=== PATIENT | male | born 1995 | race Caucasian/White ===

== ENCOUNTER 2019-05-11 08:04 | Outpatient (RCR) | payer MEDICAID ==
[~2019-05-11 08:04] MED LIST: ACET-77 PO; CARB200T6 PO; DILT180C84 PO; FURO40TA4 PO; GABA-488 PO; ISON300T18 PO; LISI10TA2 PO; MAGN400T6 PO; METO-395 PO; Non-Formulary Medication PO; PANT40TA3 PO; PYRI50TA13 PO; SPIR25TA5 PO; WARF5TAB PO
== END 2019-07-05 | disposition home or self-care (01) ==
LOC: CR 08:04
PROVIDERS: ATTEND Internal Medicine Cardiovascular Disease
DX: I50.9 Heart failure, unspecified (principal)
CPT/HCPCS: 93798

== ENCOUNTER 2019-10-20 13:25 | Emergency (ER) | payer MEDICAID ==
[~2019-10-20] VITALS: Ht 187 cm; Wt 175.0 kg
[2019-10-20] MEDS ORDERED: NS IV 1000 ML 1,000 ML IV SCH ×2 (14:03→15:35)
[2019-10-20 14:11] LABS: BASOPHILS % (AUTO) 0 % (0-10); EOSINOPHILS # (AUTO) 0.1 10^3/uL (0.0-0.3); EOSINOPHILS % (AUTO) 1 % (0-10); HEMATOCRIT 45 % (40-54); HEMOGLOBIN 14.6 G/DL (13.3-17.7); LYMPHOCYTES # (AUTO) 1.2 X 10^3 (1.0-4.0); LYMPHOCYTES % (AUTO) 14 % (12-44); MEAN CORPUSCULAR HEMOGLOBIN 27 PG (25-34); MEAN CORPUSCULAR HGB CONC 33 G/DL (32-36); MEAN CORPUSCULAR VOLUME 83 FL (80-99); MEAN PLATELET VOLUME 12.6 FL (7.4-10.4); MONOCYTES # (AUTO) 1.3 X 10^3 (0.0-1.0); MONOCYTES % (AUTO) 16 % (0-12); NEUTROPHILS # (AUTO) 5.7 X 10^3 (1.8-7.8); NEUTROPHILS % (AUTO) 69 % (42-75); PLATELET COUNT 193 10^3/uL (130-400); RED CELL DISTRIBUTION WIDTH 17.3 % (10.0-14.5); WHITE BLOOD COUNT 8.3 10^3/uL (4.3-11.0)
--- NOTE | 2019-10-20 14:24 | Diagnostic Imaging Report ---
INDICATION: Hypotension. Cough. COMPARISON: None FINDINGS: Frontal and lateral views of the chest demonstrate marked enlargement of the cardiac silhouette. There is also mild prominence of pulmonary vasculature. Left-sided AICD is noted. The lungs are clear. There are no signs of infiltrate, pleural effusions or pneumothoraces. The visualized osseous structures show no acute abnormalities. IMPRESSION: 1. Marked enlargement of the cardiac silhouette suspicious for cardiomegaly, although underlying pericardial effusion cannot be excluded. 2. Probable mild vascular congestion as well. Dictated by: Dictated on workstation # [id number]
[2019-10-20 15:22] LABS: ALBUMIN 4.3 GM/DL (3.2-4.5); BILIRUBIN,TOTAL 1.5 MG/DL (0.1-1.0); CALCIUM 9.3 MG/DL (8.5-10.1); CREATININE SERUM 2.66 MG/DL (0.60-1.30); MAGNESIUM 2.2 MG/DL (1.6-2.4); POTASSIUM 5.2 MMOL/L (3.6-5.0); TOTAL PROTEIN 6.6 GM/DL (6.4-8.2)
--- NOTE | 2019-10-20 16:29 | ED General ---
General Chief Complaint: Cardiac/General Problems Stated Complaint: BLOOD PRESSURE LOW/COUGH Nursing Triage Note: AMB TO TRIAGE WITH COMPLAINTS OF HYPOTENSION STARTING LAST WEEK. WAS SEEN BY DR LANDIS YESTERDAY AND WAS TOLD IF IT DID NOT GET BETTER TO GO TO THE ER. TAKES X2 DIURETICS AND HAS STOPPED ONE BUT DOES NOT KNOW THE NAME. Nursing Sepsis Screen: No Definite Risk Source of Information: Patient History of Present Illness Date Seen by Provider: Oct 20, 2019 Time Seen by Provider: 14:20 Initial Comments 23-year-old male brought in due to concern for hypotension. Patient has a history of severe dilated cardiomyopathy with last known EF of 20%. Patient presents with cough, fever and then started having low blood pressure. Blood pressure going on for a few days was seen by his primary care yesterday and was told to stop taking one of his to diuretics. That if it did not get better to come to the ER. Patient's blood pressure upon arrival to the ER with systolics of the low 70s. He did not complain of any chest pain. Does have some generalized malaise. No nausea vomiting diarrhea or other systemic Allergies and Home Medications Allergies Coded Allergies: Penicillins (Unverified Allergy, Unknown, 11/22/15) azithromycin (Verified Allergy, Unknown, 11/24/15) cefepime (Verified Allergy, Unknown, 11/24/15) Home Medications Acetaminophen 500 Mg Tablet, 1,000 MG PO Q6H PRN for MILD PAIN Prescribed by: HEATH SAPP on 12/05/15 141 Carbamazepine 200 Mg Tablet, 200 MG PO TID Prescribed by: HEATH SAPP on 12/05/15 141 Diltiazem HCl 180 Mg Cap.er.24h, 180 MG PO DAILY Prescribed by: HEATH SAPP on 12/05/15 141 Furosemide 40 Mg Tablet, 40 MG PO DAILY@07,17 Prescribed by: HEATH SAPP on 12/05/15 141 Gabapentin 300 Mg Capsule, 300 MG PO TID Prescribed by: HEATH SAPP on 12/05/15 141 Isoniazid 300 Mg Tablet, 0 MG PO DAILY Prescribed by: HEATH SAPP on 12/05/15 141 Lisinopril 10 Mg Tablet, 10 MG PO DAILY Prescribed by: HEATH SAPP on 12/05/15 141 Magnesium Oxide 400 Mg Tablet, 400 MG PO DAILY@0700 Prescribed by: HEATH SAPP on 12/05/15 1418 Metoprolol Succinate 100 Mg Tab.er.24h, 200 MG PO DAILY Prescribed by: HEATH SAPP on 12/05/15 141 Pantoprazole Sodium 40 Mg Tablet.dr, 40 MG PO DAILY@0700 Prescribed by: HEATH SAPP on 12/05/15 141 Pyridoxine HCl 50 Mg Tablet, 0 MG PO DAILY Prescribed by: HEATH SAPP on 12/05/15 141 Spironolactone 25 Mg Tablet, 12.5 MG PO DAILY Prescribed by: HEATH SAPP on 12/05/15 141 Warfarin Sodium 5 Mg Tablet, 5 MG PO DAILY@1800 Prescribed by: HEATH SAPP on 12/05/151417 Patient Home Medication List Home Medication List Reviewed: Yes Review of Systems Review of Systems Constitutional: No chills; fever, malaise Respiratory: cough Cardiovascular: see HPI Gastrointestinal: no symptoms reported Musculoskeletal: no symptoms reported Skin: no symptoms reported Past Mrofpny-Ovdgdd-Wlyjlp Hx Past Med/Social Hx: Reviewed Nursing Past Med/Soc Hx Patient Social History Alcohol Use: Denies Use Recreational Drug Use: No Smoking Status: Never a Smoker Recent Foreign Travel: No Contact w/Someone Who Travel: No Recent Infectious Disease Expo: No Physical Abuse: No Sexual Abuse: No Mistreated: No Fear: No Immunizations Up To Date Tetanus Booster (TDap): Unknown PED Vaccines UTD: No Date of Pneumonia Vaccine: Nov 22, 2015 Past Medical History Surgeries: Yes Orthopedic Respiratory: Yes Pneumonia, RSV, Tuberculosis Currently Using CPAP: No Currently Using BIPAP: No Cardiomyopathy Neurological: Yes Reproductive Disorders: No Sexually Transmitted Disease: No HIV/AIDS: No Gastrointestinal: Yes Hepatitis Musculoskeletal: No Endocrine: No Loss of Vision: Denies Hearing Impairment: Denies Cancer: No Psychosocial: No Sleep Difficulties Integumentary: No Blood Disorders: No Adverse Reaction/Blood Tranf: No Family Medical History Alcoholism 19 MOTHER Asthma G8 SISTER (8 ) Congenital heart disease G8 SISTER Drug abuse 19 FATHER 19 MOTHER Hypertension 19 FATHER Physical Exam Vital Signs Vital Signs - First Documented 10/20/19 13:47 Temp 36.4 Pulse 75 Resp 16 B/P (MAP) 86/39 (55) Pulse Ox 97 O2 Delivery Room Air Capillary Refill : Less Than 3 Seconds Height, Weight, BMI Height: '" Weight: lbs. oz. kg; 50.00 BMI Method: General Appearance: No Apparent Distress HEENT: TMs Normal Respiratory: Lungs Clear, Normal Breath Sounds Cardiovascular: Regular Rate, Rhythm Gastrointestinal: Non Tender, Soft Extremity: Slow Capillary Refill Neurologic/Psychiatric: Alert, Oriented x3, capacitor repairer II-XII Norm as Tested Focused Exam Lactate Level 10/20/19 14:23: Lactic Acid Level 1.55 Lactic Acid Level Laboratory Tests Test 10/20/19 14:23 Lactic Acid Level 1.55 MMOL/L (0.50-2.00) Progress/Results/Core Measures Suspected Sepsis Recent Fever Within 48 Hours: No Infection Criteria Present: None New/Unexplained Altered Menta: No Sepsis Screen: No Definite Risk SIRS Temperature: Pulse: 75 Respiratory Rate: 16 Laboratory Tests 10/20/19 14:04: White Blood Count 8.3 Blood Pressure 86 /39 Mean: 55 10/20/19 14:23: Lactic Acid Level 1.55 Laboratory Tests 10/20/19 14:04: Platelet Count 193 10/20/19 14:53: Creatinine 2.66H, Total Bilirubin 1.5H Results/Orders Lab Results Laboratory Tests Test 10/20/19 14:04 10/20/19 14:23 10/20/19 14:53 Range/Units White Blood Count 8.3 4.3-11.0 10^3/uL Red Blood Count 5.38 4.35-5.85 10^6/uL Hemoglobin 14.6 13.3-17.7 G/DL Hematocrit 45 40-54 % Mean Corpuscular Volume 83 80-99 FL Mean Corpuscular Hemoglobin 27 25-34 PG Mean Corpuscular Hemoglobin Concent 33 32-36 G/DL Red Cell Distribution Width 17.3 H 10.0-14.5 % Platelet Count 193 130-400 10^3/uL Mean Platelet Volume 12.6 H 7.4-10.4 FL Neutrophils (%) (Auto) 69 42-75 % Lymphocytes (%) (Auto) 14 12-44 % Monocytes (%) (Auto) 16 H 0-12 % Eosinophils (%) (Auto) 1 0-10 % Basophils (%) (Auto) 0 0-10 % Neutrophils # (Auto) 5.7 1.8-7.8 X 10^3 Lymphocytes # (Auto) 1.2 1.0-4.0 X 10^3 Monocytes # (Auto) 1.3 H 0.0-1.0 X 10^3 Eosinophils # (Auto) 0.1 0.0-0.3 10^3/uL Basophils # (Auto) 0.0 0.0-0.1 10^3/uL B-Type Natriuretic Peptide 1527.6 H <100.0 PG/ML Lactic Acid Level 1.55 0.50-2.00 MMOL/L Sodium Level 132 L 135-145 MMOL/L Potassium Level 5.2 H 3.6-5.0 MMOL/L Chloride Level 96 L 98-107 MMOL/L Carbon Dioxide Level 23 21-32 MMOL/L Anion Gap 13 5-14 MMOL/L Blood Urea Nitrogen 54 H 7-18 MG/DL Creatinine 2.66 H 0.60-1.30 MG/DL Estimat Glomerular Filtration Rate 30 BUN/Creatinine Ratio 20 Glucose Level 96 70-105 MG/DL Calcium Level 9.3 8.5-10.1 MG/DL Corrected Calcium 9.1 8.5-10.1 MG/DL Magnesium Level 2.2 1.6-2.4 MG/DL Total Bilirubin 1.5 H 0.1-1.0 MG/DL Aspartate Amino Transf (AST/SGOT) 24 5-34 U/L Alanine Aminotransferase (ALT/SGPT) 19 0-55 U/L Alkaline Phosphatase 103 40-136 U/L Troponin I 0.037 H <0.028 NG/ML Total Protein 6.6 6.4-8.2 GM/DL Albumin 4.3 3.2-4.5 GM/DL Micro Results Microbiology 10/20/19 Influenza Types A,B Antigen (SUZANNE) - Final, Complete My Orders Orders - AKILA DELGADO DO Ekg Tracing (10/20/19 14:02) BNP (10/20/19 14:02) Cbc With Automated Diff (10/20/19 14:02) Comprehensive Metabolic Panel (10/20/19 14:02) Lactic Acid Analyzer (10/20/19 14:02) Magnesium (10/20/19 14:02) Troponin I (10/20/19 14:02) Influenza A And B Antigens (10/20/19 14:02) Chest Pa/Lat (2 View) (10/20/19 14:02) Ed Iv/Invasive Line Start (12/12/19 14:03) Ns Iv 1000 Ml (Sodium Chloride 0.9%) (10/20/19 14:03) Ed Iv/Invasive Line Start (10/20/19 15:35) Ns Iv 1000 Ml (Sodium Chloride 0.9%) (10/20/19 15:35) Vital Signs/I&O 10/20/19 13:47 Temp 36.4 Pulse 75 Resp 16 B/P (MAP) 86/39 (55) Pulse Ox 97 O2 Delivery Room Air Capillary Refill : Less Than 3 Seconds Blood Pressure Mean: 55 POS Progress Note : Time: 16:47 Progress Note Patient to be transferred to [facility]. We were able to get his systolic blood pressure up to in the 100s. We will hold fluids and only gets small doses as needed to keep his blood pressure systolic 90-100. Patient has severe CHF with biventricular failure due to patient's severe cardiomyopathy both [facility] and [facility] are unable to care for patient. He will be transferred to [facility] since they have the capability to care for him and have seen him in the past. Patient went in stable condition and will be transferred via EMS Departure Impression Primary Impression: Hypotension Qualified Codes: I95.9 - Hypotension, unspecified Additional Impression: Cardiomyopathy Qualified Codes: I42.0 - Dilated cardiomyopathy Disposition: 02 XFER SHT-TRM HOSP Condition: Stable Transfer Transfer Reason: Exceeds level of care Time Spoke to Accepting Phy: 16:45 Transfer Time: 17:45 Transfer Facility: [facility] Method of Transfer: EMS Departure-Patient Inst. Referrals: EMMANUEL LANDIS MD (PCP/Family) Primary Care Physician AKILA DELGADO DO Oct 20, 2019 16:29 POS
[2019-10-20 18:06] VITALS: BP 94/69
== END 2019-10-20 18:06 | disposition short-term general hospital (02) ==
LOC: EDUNIT# 13:25 → ER 13:26
DX: I95.9 Hypotension, unspecified (principal); I42.0 Dilated cardiomyopathy; Z88.0 Allergy status to penicillin; Z88.1 Allergy status to other antibiotic agents; Z79.01 Long term (current) use of anticoagulants; Z82.49 Family history of ischemic heart disease and other diseases of the circulatory system
CPT/HCPCS: 36415; 71046; 80053; 83605; 83735; 83880; 84484; 85025; 87804; 93005; 96360; 96361

== ENCOUNTER 2019-11-09 13:11 | Emergency (ER) | payer MEDICAID ==
[~2019-11-09] VITALS: Ht 187 cm; Wt 164.6 kg
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
[2019-11-09 13:46] LABS: HEMOGLOBIN 15.6 G/DL (13.3-17.7); MEAN CORPUSCULAR HEMOGLOBIN 27 PG (25-34); WHITE BLOOD COUNT 9.4 10^3/uL (4.3-11.0)
[2019-11-09 13:47] LABS: BASOPHILS % (AUTO) 1 % (0-10); EOSINOPHILS % (AUTO) 1 % (0-10); HEMATOCRIT 49 % (40-54); LYMPHOCYTES % (AUTO) 23 % (12-44); MEAN CORPUSCULAR HGB CONC 32 G/DL (32-36); MEAN CORPUSCULAR VOLUME 84 FL (80-99); MEAN PLATELET VOLUME 13.6 FL (7.4-10.4); MONOCYTES % (AUTO) 13 % (0-12); NEUTROPHILS % (AUTO) 63 % (42-75); PLATELET COUNT 164 10^3/uL (130-400)
[2019-11-09 13:48] LABS: BASOPHILS # (AUTO) 0.1 10^3/uL (0.0-0.1); EOSINOPHILS # (AUTO) 0.1 10^3/uL (0.0-0.3); LYMPHOCYTES # (AUTO) 2.1 X 10^3 (1.0-4.0); MONOCYTES # (AUTO) 1.2 X 10^3 (0.0-1.0)
--- NOTE | 2019-11-09 14:17 | NUR ---
Patient's grandma states that they missed 3 days of his seizure medicine starting on Oct 27.
[2019-11-09] MEDS ORDERED: LEVE500T99 PO (14:18)
--- NOTE | 2019-11-09 14:18 | NUR ---
Grandmother states the patient is scheduled for pacemaker surgery on November 15.
[2019-11-09] MEDS ORDERED: LEVETIRACETAM 500 MG/5 ML (KEPPRA) VIAL IV ONE (14:19)
--- NOTE | 2019-11-09 14:27 | Diagnostic Imaging Report ---
PROCEDURE: CT head without contrast. TECHNIQUE: Multiple contiguous axial images were obtained through the brain without the use of intravenous contrast. Auto Exposure Controls were utilized during the CT exam to meet ALARA standards for radiation dose reduction. DATE: November 09, 2019. COMPARISON: None. INDICATION: 24-year-old male, seizure-like activity. FINDINGS: The ventricles and cerebral spinal fluid spaces are of normal size and configuration for the patient's age. There is no mass effect or midline shift. There is no acute intracranial hemorrhage. There is no abnormal extra-axial fluid collection. The visualized portions of the paranasal sinuses, mastoid air cells and middle ears are well aerated. IMPRESSION: 1. No identified acute intracranial abnormality. Dictated by: Dictated on workstation # [id number]
[2019-11-09 14:30] LABS: POTASSIUM 5.1 MMOL/L (3.6-5.0)
[2019-11-09] MEDS ORDERED: LEVETIRACETAM INJECTION 1,000 MG in NS (IVPB) 100 ML IV SCH ×2 (14:30→21:00)
[2019-11-09 14:32] LABS: CREATININE SERUM 3.33 MG/DL (0.60-1.30)
[2019-11-09 14:33] LABS: ALBUMIN 4.2 GM/DL (3.2-4.5); BILIRUBIN,TOTAL 3.1 MG/DL (0.1-1.0); CALCIUM 9.8 MG/DL (8.5-10.1); TOTAL PROTEIN 6.5 GM/DL (6.4-8.2)
[2019-11-09] MEDS ORDERED: NS IV 500 ML 500 ML IV ONE (14:34)
--- NOTE | 2019-11-09 14:51 | NUR ---
Iv infiltrated at this time. Arm wrapped in warm blanket and notified Dr Polanco. Approximately 100 mls of 500 ml bolus has infused.
[2019-11-09 15:08] VITALS: BP 84/52
== END 2019-11-09 15:20 | disposition home or self-care (01) ==
LOC: EDUNIT# 13:11 → ER FS 13:12
DX: G40.909 Epilepsy, unspecified, not intractable, without status epilepticus (principal); Z88.0 Allergy status to penicillin; Z88.1 Allergy status to other antibiotic agents; Z79.01 Long term (current) use of anticoagulants; Z82.49 Family history of ischemic heart disease and other diseases of the circulatory system
CPT/HCPCS: 36415; 70450; 80053; 80156; 82962; 84443; 85025; 93005; 96365

== ENCOUNTER 2019-11-10 19:07 | Emergency (ER) | payer MEDICAID ==
[~2019-11-10] VITALS: Ht 187.9 cm; Wt 164.6 kg
[~2019-11-10 19:07] MED LIST changes: +LEVE500T99 PO
[2019-11-10] MEDS ORDERED: NS IV 1000 ML 1,000 ML IV SCH (19:21)
[2019-11-10] MEDS ORDERED: LIDOCAINE 1% INJ 20 ML 20 ML VIAL INJ ONE (19:30)
[2019-11-10] MEDS ORDERED: VANCOMYCIN INJECTION 1,000 MG in NS (IVPB) 250 ML IV ONE (19:30)
[2019-11-10] MEDS ORDERED: MEROPENEM 1,000 MG in WATER (STERILE) FOR INJECTION 20 ML IV ONE (19:30)
--- NOTE | 2019-11-10 19:30 | ED Neurological Problem ---
General Stated Complaint: HYPOTENSIVE Source: patient, family, EMS Exam Limitations: clinical condition (partially postictal) History of Present Illness Date Seen by Provider: Nov 10, 2019 Time Seen by Provider: 19:12 Initial Comments He was getting ready to transport [facility] by private conveyance with his family for chronic renal failure and he had a seizure. Last time he had was over 10 years ago when he was in high school. He still takes Tegretol and another new antiepileptic medicine but he doesn't know the name. He does not know the name of most of his medicines. He has a pacemaker in place. EMS noted he was cool to touch and had poor blood pressure. They were unable to access his veins because he is a difficult stick. They were warming him up on scene and en route. He bit his tongue and was predominantly concerned with this. Family gives a history per his aunt bit for the past week she's had a couple episodes of seizure which she has not had for over 10 years. Labs were ordered by his cardiology team at [facility]. The patient seemed to be an acute kidney failure and so they requested him to come up to [facility] and had a bed ready for him. They were on their way to go there when he collapsed and started having another seizure and called EMS. EMS reports patient had very low blood pressure. They deny any recent illnesses. Apparently he was due to go up in the next couple weeks to have something done to his pacemaker by his cardiology team. He did recently start Keppra after the first couple episodes of seizures and being seen in the ER in conjunction with neurologic consult in [place] via telephone. Allergies and Home Medications Allergies Coded Allergies: Penicillins (Unverified Allergy, Unknown, 11/22/15) azithromycin (Verified Allergy, Unknown, 11/24/15) cefepime (Verified Allergy, Unknown, 11/24/15) Home Medications Acetaminophen 500 Mg Tablet, 1,000 MG PO Q6H PRN for MILD PAIN Prescribed by: HEATH SAPP on 12/05/15 141 Carbamazepine 200 Mg Tablet, 200 MG PO TID Prescribed by: HEATH SAPP on 12/05/15 1418 Diltiazem HCl 180 Mg Cap.er.24h, 180 MG PO DAILY Prescribed by: HEATH SAPP on 12/05/15 1418 Furosemide 40 Mg Tablet, 40 MG PO DAILY@,17 Prescribed by: HEATH SAPP on 12/05/15 141 Gabapentin 300 Mg Capsule, 300 MG PO TID Prescribed by: HEATH SAPP on 12/05/15 141 Isoniazid 300 Mg Tablet, 0 MG PO DAILY Prescribed by: HEATH SAPP on 12/05/15 141 Levetiracetam 500 Mg Tablet, 500 MG PO BID Prescribed by: AKILA DELGADO on 11/09/19 141 Lisinopril 10 Mg Tablet, 10 MG PO DAILY Prescribed by: HEATH SAPP on 12/05/15 141 Magnesium Oxide 400 Mg Tablet, 400 MG PO DAILY@0700 Prescribed by: HEATH SAPP on 12/05/15 141 Metoprolol Succinate 100 Mg Tab.er.24h, 200 MG PO DAILY Prescribed by: HEATH SAPP on 12/05/15 141 Pantoprazole Sodium 40 Mg Tablet.dr, 40 MG PO DAILY@0700 Prescribed by: HEATH SAPP on 12/05/15 141 Pyridoxine HCl 50 Mg Tablet, 0 MG PO DAILY Prescribed by: HEATH SAPP on 12/05/15 141 Spironolactone 25 Mg Tablet, 12.5 MG PO DAILY Prescribed by: HEATH SAPP on 12/05/15 141 Warfarin Sodium 5 Mg Tablet, 5 MG PO DAILY@1800 Prescribed by: HEATH SAPP on 12/05/151417 Patient Home Medication List Home Medication List Reviewed: Yes Review of Systems Review of Systems Constitutional: No chills, No diaphoresis; weakness Eyes: Denies Blindness, Denies Drainage Ears, Nose, Mouth, Throat: denies ear pain, denies ear discharge Respiratory: No cough, No short of breath Cardiovascular: No chest pain, No edema Gastrointestinal: No abdominal pain, No nausea, No vomiting Genitourinary: No discharge, No dysuria Musculoskeletal: No joint swelling, No muscle pain Skin: No dryness, No rash Psychiatric/Neurological: Denies Anxiety, Denies Depressed All Other Systems Reviewed Negative Unless Noted: Yes Past Vxhmmyb-Uzahoh-Btnjib Hx Patient Social History Alcohol Use: Denies Use Recreational Drug Use: No Smoking Status: Never a Smoker 2nd Hand Smoke Exposure: No Recent Foreign Travel: No Contact w/Someone Who Travel: No Immunizations Up To Date Tetanus Booster (TDap): Unknown PED Vaccines UTD: No Date of Pneumonia Vaccine: Nov 22, 2015 Past Medical History Surgeries: Yes Orthopedic, Pacemaker Respiratory: Yes Pneumonia, RSV, Tuberculosis Currently Using CPAP: No Currently Using BIPAP: No Cardiac: Yes Cardiomyopathy Neurological: Yes Seizure Disorder Reproductive Disorders: No Sexually Transmitted Disease: No HIV/AIDS: No Genitourinary: No Gastrointestinal: Yes Hepatitis Musculoskeletal: No Endocrine: No Loss of Vision: Denies Hearing Impairment: Denies Cancer: No Psychosocial: No Sleep Difficulties Integumentary: No Blood Disorders: No Adverse Reaction/Blood Tranf: No Family Medical History Alcoholism 19 MOTHER Asthma G8 SISTER (8 ) Congenital heart disease G8 SISTER Drug abuse 19 FATHER 19 MOTHER Hypertension 19 FATHER Physical Exam Vital Signs Vital Signs - First Documented 11/10/19 19:10 Temp 36.2 Pulse 71 Resp 18 B/P (MAP) 83/55 (64) O2 Delivery Room Air Capillary Refill : Height, Weight, BMI Height: '" Weight: lbs. oz. kg; 47.00 BMI Method: General Appearance: moderate distress, obese HEENT: PERRL/EOMI, pharynx normal Neck: full range of motion, normal inspection Respiratory: normal breath sounds, no respiratory distress, no accessory muscle use Cardiovascular: normal peripheral pulses, regular rate, rhythm Peripheral Pulses: 2+ Radial Pulses (R), 2+ Radial Pulses (L) Gastrointestinal: normal bowel sounds, non tender, soft Extremities: normal range of motion, non-tender, normal capillary refill Neurologic/Psychiatric: alert, normal mood/affect, oriented x 3 Crainal Nerves: normal hearing, normal speech, PERRL Motor/Sensory: no motor deficit, no sensory deficit Skin: normal color, warm/dry Focused Exam Lactate Level 11/10/19 20:50: Lactic Acid Level 1.84 Lactic Acid Level Laboratory Tests Test 11/10/19 20:50 Lactic Acid Level 1.84 MMOL/L (0.50-2.00) Procedures/Interventions Lumen: triple Central Line Procedure: betadine prep (chlorhexidine prep), sterile drapes applied, sterile dressing applied Position: internal jugular (L) Anesthesia: Lidocaine Volume Anesthetic (ccs): 3 Complications: none Post Position: sutured, good blood return, position confirmed w/ CXR Right side is not good access point. Using usual sterile technique and ultrasound guidance we watch the needle tip entering the left internal jugular. We get good blood return and passed a guidewire and the skin and removed the needle. Place a dilator over the guidewire removed that and then threaded the central lumen of the triple lumen 20 cm 7 Martiniquais catheter. We then removed the guidewire. There is no ectopy on the monitor. Catheter was placed right at 14.5 cm and stitched in place 3 different places using the supplied suture. We then used the sterile dressing and mild gel provided and dressed the site. We'll get an x-ray which discharged in good positioning. Good flush and return of blood. Progress/Results/Core Measures Results/Orders Lab Results Laboratory Tests Test 11/10/19 20:50 11/10/19 21:14 Range/Units White Blood Count 7.7 4.3-11.0 10^3/uL Red Blood Count 5.12 4.35-5.85 10^6/uL Hemoglobin 13.6 13.3-17.7 G/DL Hematocrit 41 40-54 % Mean Corpuscular Volume 80 80-99 FL Mean Corpuscular Hemoglobin 27 25-34 PG Mean Corpuscular Hemoglobin Concent 33 32-36 G/DL Red Cell Distribution Width 17.0 H 10.0-14.5 % Platelet Count 165 130-400 10^3/uL Mean Platelet Volume 13.7 H 7.4-10.4 FL Neutrophils (%) (Auto) 71 42-75 % Lymphocytes (%) (Auto) 16 12-44 % Monocytes (%) (Auto) 13 H 0-12 % Eosinophils (%) (Auto) 0 0-10 % Basophils (%) (Auto) 0 0-10 % Neutrophils # (Auto) 5.4 1.8-7.8 X 10^3 Lymphocytes # (Auto) 1.2 1.0-4.0 X 10^3 Monocytes # (Auto) 1.0 0.0-1.0 X 10^3 Eosinophils # (Auto) 0.0 0.0-0.3 10^3/uL Basophils # (Auto) 0.0 0.0-0.1 10^3/uL Prothrombin Time 79.8 *H 12.2-14.7 SEC INR Comment 9.3 *H 0.8-1.4 Activated Partial Thromboplast Time 56 H 24-35 SEC Sodium Level 125 *L 135-145 MMOL/L Potassium Level 5.2 H 3.6-5.0 MMOL/L Chloride Level 92 L 98-107 MMOL/L Carbon Dioxide Level 15 L 21-32 MMOL/L Anion Gap 18 H 5-14 MMOL/L Blood Urea Nitrogen 115 *H 7-18 MG/DL Creatinine 3.82 #H 0.60-1.30 MG/DL Estimat Glomerular Filtration Rate 19 BUN/Creatinine Ratio 30 Glucose Level 93 70-105 MG/DL Lactic Acid Level 1.84 0.50-2.00 MMOL/L Calcium Level 9.1 8.5-10.1 MG/DL Corrected Calcium 9.1 8.5-10.1 MG/DL Total Bilirubin 3.0 H 0.1-1.0 MG/DL Aspartate Amino Transf (AST/SGOT) 58 H 5-34 U/L Alanine Aminotransferase (ALT/SGPT) 77 H 0-55 U/L Alkaline Phosphatase 151 H 40-136 U/L Troponin I 0.056 H <0.028 NG/ML B-Type Natriuretic Peptide 2591.1 H <100.0 PG/ML Total Protein 6.3 L 6.4-8.2 GM/DL Albumin 4.0 3.2-4.5 GM/DL Urine Color YELLOW Urine Clarity CLOUDY Urine pH 6.0 5-9 Urine Specific [place] 1.020 1.016-1.022 Urine Protein 3+ H NEGATIVE Urine Glucose (UA) NEGATIVE NEGATIVE Urine Ketones TRACE H NEGATIVE Urine Nitrite NEGATIVE NEGATIVE Urine Bilirubin 2+ H NEGATIVE Urine Urobilinogen 0.2 < = 1.0 MG/DL Urine Leukocyte Esterase NEGATIVE NEGATIVE Urine RBC (Auto) 1+ H NEGATIVE Urine RBC 2-5 H /HPF Urine WBC 2-5 /HPF Urine Crystals PRESENT H /LPF Urine Amorphous Sediment LARGE ANKIT URATES H /LPF Urine Bacteria NA /HPF Urine Casts NONE /LPF Urine Mucus NEGATIVE /LPF Urine Culture Indicated CULTURE PENDING Micro Results Microbiology 11/10/19 Influenza Types A,B Antigen (SUZANNE) - Final, Complete My Orders Orders - ALLYSON LANGE Cbc With Automated Diff (11/10/19 19:21) Comprehensive Metabolic Panel (11/10/19 19:21) Blood Culture (11/10/19 19:21) Sputum Culture (11/10/19 19:21) Urinalysis (11/10/19 19:21) Urine Culture (11/10/19 19:21) Protime With Inr (11/10/19 19:21) Partial Thromboplastin Time (11/10/19 19:21) Ed Iv/Invasive Line Start (11/10/19 19:21) Ed Iv/Invasive Line Start (11/10/19 19:21) Ekg Tracing (11/10/19 19:21) Troponin I (11/10/19 19:21) Vital Signs Adult Sepsis Patie Q15M (11/10/19 19:21) O2 (11/10/19 19:21) Remove Rings In Anticipation O (11/10/19 19:21) Lactic Acid Analyzer (11/10/19 19:21) Influenza A And B Antigens (11/10/19 19:21) Ns Iv 1000 Ml (Sodium Chloride 0.9%) (11/10/19 19:21) Vancomycin Injection (Vancomycin Injecti (11/10/19 19:30) Lidocaine 1% Inj 20 Ml (Xylocaine 1% Inj (11/10/19 19:30) Meropenem (Merrem 1000 Mg) (11/10/19 19:30) Chest 1 View, Ap/Pa Only (11/10/19 20:23) Meropenem (Merrem 500 Mg) (11/10/19 20:32) Water (Sterile) For Injection (Sterile W (11/10/19 20:32) Hurt Cath (11/10/19 21:21) Phytonadione (Adult) Injection (Aquameph (11/10/19 21:45) BNP (11/10/19 22:01) Norepinephrine (Levophed) (11/10/19 22:15) Atropine Injection (Atropine Injection) (11/10/19 23:00) Ct Head Wo (11/11/19 00:01) Ct Neck (Soft Tissue) Wo (11/11/19 00:01) Medications Given in ED Current Medications Medications Dose Ordered Sig/Bryant Route Start Time Stop Time Status Last Admin Dose Admin Meropenem 500 mg STK-MED ONCE IV 11/10/19 20:32 11/10/19 20:36 DC 11/10/19 20:52 1,000 MG Phytonadione 10 mg/Sodium Chloride 51 ml @ 153 mls/hr ONCE ONCE IV 11/10/19 21:45 11/10/19 22:04 DC 11/10/19 22:12 153 MLS/HR Sterile Water 20 ml @ ud STK-MED ONCE .ROUTE 11/10/19 20:32 11/10/19 20:36 DC 11/10/19 20:52 240 MLS/HR Vancomycin HCl 1000 mg/Sodium Chloride 250 ml @ 250 mls/hr ONCE ONCE IV 11/10/19 19:30 11/10/19 20:29 DC 11/10/19 20:51 250 MLS/HR Vital Signs/I&O 11/10/19 11/10/19 19:10 21:30 Temp 36.2 36.2 Pulse 71 62 Resp 18 18 B/P (MAP) 83/55 (64) 93/50 O2 Delivery Room Air Room Air 11/11/19 00:00 Intake Total 882.5 ml Balance 882.5 ml Progress Progress Note : Time: 21:45 Progress Note Patient's very hypertensive and multiple attempts were made at IV. Because of the low blood pressure and said put a central line. He had poor access on the right internal jugular so we went to the left and he had a good access. We were able to place it knowing he is on warfarin and he has a small hematoma there. Patient's tolerating it well. He tolerated Trendelenburg and now getting some IV fluids in him his blood pressures up to 93/50. Heart rate has been low in the 40-70 range. We have not seen pacer spikes. EKG was obtained that did not demonstrate anything relevant ST elevation or depression. Plan is to get him stable and connect him with [facility]. Initial ECG Impression Date: Nov 10, 2019 Initial ECG Impression Time: 19:13 Initial ECG Rate: 69 Initial ECG Rhythm: Normal Sinus Initial ECG Intervals: QT (575) Initial ECG Intervals MA 276 ms Initial ECG Impression: Nonspecific Changes Comment First-degree AV block with wide QRS, LBB Diagnostic Imaging Diagonstic Imaging: Xray Plain Films/CT/US/NM/MRI: chest (1v) Comments NAME: JOHN GIVENS [facility] REC#: [id number] PT STATUS: REG ER : 1995 PHYSICIAN: ALLYSON LANGE MD ADMIT DATE: 11/10/19/ER Signed Date of Exam:11/10/19 CHEST 1 VIEW, AP/PA ONLY INDICATION: Hypotension, line placement. COMPARISON: 10/20/2019. EXAMINATION: Single view of the chest was obtained. FINDINGS: Cardiac enlargement with worsening central vascular congestion. Cardiac pacemaker appears to be stable. There is no pneumothorax or effusion. New left IJ catheter is seen. However, the distal aspect of the catheter is not well demonstrated on this series. There is no pneumothorax. IMPRESSION: 1. Left IJ catheter placement without pneumothorax. The tip of the catheter is not well demonstrated due to patient body habitus. 2. Cardiac enlargement with worsening central vascular congestion. Dictated by: Dictated on workstation # [id number] Dict: 11/10/192039 Trans: 11/10/192056 [id number] Interpreted by: RACHEL ALEXANDRA Electronically signed by: RACHEL ALEXANDRA 11/10/192056 Reviewed: Reviewed by Me Diagonstic Imaging: CT (without IV contrast) Plain Films/CT/US/NM/MRI: head (soft tissue neck) Comments No intracranial hemorrhage, fracture, midline shift, tumor. No soft tissue hematoma of significance. Reviewed: Reviewed Night [facility] Study, Reviewed by Me Departure Impression Primary Impression: Hypotensive syncope Additional Impressions: CKD (chronic kidney disease) Qualified Codes: N18.9 - Chronic kidney disease, unspecified Bradycardia Cardiogenic shock Disposition: [facility] Condition: Stable Transfer Transfer Reason: Exceeds level of care Transfer Progress Notes 2200: Called [facility]. Dr Brown accepted the patient at 2205. Departure-Patient Inst. Referrals: EMMANUEL LANDIS MD (PCP/Family) Primary Care Physician ALLYSON LANGE Nov 10, 2019 19:30
[2019-11-10] MEDS ORDERED: MEROPENEM 500 MG VIAL (MERREM) IV ONE (20:32)
[2019-11-10] MEDS ORDERED: WATER (STERILE) FOR INJECTION 20 ML ONE (20:32)
--- NOTE | 2019-11-10 20:46 | Diagnostic Imaging Report ---
INDICATION: Hypotension, line placement. COMPARISON: 10/20/2019. EXAMINATION: Single view of the chest was obtained. FINDINGS: Cardiac enlargement with worsening central vascular congestion. Cardiac pacemaker appears to be stable. There is no pneumothorax or effusion. New left IJ catheter is seen. However, the distal aspect of the catheter is not well demonstrated on this series. There is no pneumothorax. IMPRESSION: 1. Left IJ catheter placement without pneumothorax. The tip of the catheter is not well demonstrated due to patient body habitus. 2. Cardiac enlargement with worsening central vascular congestion. Dictated by: Dictated on workstation # [id number]
[2019-11-10 20:59] LABS: BASOPHILS % (AUTO) 0 % (0-10); EOSINOPHILS % (AUTO) 0 % (0-10); HEMATOCRIT 41 % (40-54); HEMOGLOBIN 13.6 G/DL (13.3-17.7); LYMPHOCYTES # (AUTO) 1.2 X 10^3 (1.0-4.0); LYMPHOCYTES % (AUTO) 16 % (12-44); MEAN CORPUSCULAR HEMOGLOBIN 27 PG (25-34); MEAN CORPUSCULAR HGB CONC 33 G/DL (32-36); MEAN CORPUSCULAR VOLUME 80 FL (80-99); MEAN PLATELET VOLUME 13.7 FL (7.4-10.4); MONOCYTES % (AUTO) 13 % (0-12); NEUTROPHILS # (AUTO) 5.4 X 10^3 (1.8-7.8); NEUTROPHILS % (AUTO) 71 % (42-75); PLATELET COUNT 165 10^3/uL (130-400); WHITE BLOOD COUNT 7.7 10^3/uL (4.3-11.0)
[2019-11-10 21:22] LABS: CLARITY,URINE CLOUDY; COLOR,URINE YELLOW; GLUCOSE, URINE (UA) NEGATIVE (NEGATIVE); KETONES,URINE TRACE (NEGATIVE); LEUKOCYTE ESTERASE ,URINE NEGATIVE (NEGATIVE); NITRITE,URINE NEGATIVE (NEGATIVE); PROTEIN,URINE 3+ (NEGATIVE)
[2019-11-10 21:24] LABS: PROTHROMBIN TIME PATIENT 79.8 SEC (12.2-14.7)
[2019-11-10 21:25] LABS: INR 9.3 (0.8-1.4)
[2019-11-10 21:26] LABS: CALCIUM 9.1 MG/DL (8.5-10.1); CREATININE SERUM 3.82 MG/DL (0.60-1.30); POTASSIUM 5.2 MMOL/L (3.6-5.0); TOTAL PROTEIN 6.3 GM/DL (6.4-8.2)
[2019-11-10 21:34] LABS: BILIRUBIN,URINE 2+ (NEGATIVE)
[2019-11-10 21:36] LABS: AMORPHOUS SEDIMENT,UR LARGE AMOR URATES /LPF
[2019-11-10] MEDS ORDERED: PHYTONADIONE (ADULT) INJECTION 10 MG in NS (IVPB) 50 ML IV ONE (21:45)
[2019-11-10] MEDS: NOREPINEPHRINE 4 MG in NS (IVPB) 250 ML IV SCH ×2 (22:13→23:25)
--- NOTE | 2019-11-10 22:57 | NUR ---
SAGAR FROM [employer] CALLED WITH RESULTS. REPORT FAX RECEIVED AND GIVEN TO DR. LANGE.
[2019-11-10] MEDS ORDERED: ATROPINE INJ 0.4 MG/ML SDV IV ONE (23:00)
[2019-11-11] MEDS: NOREPINEPHRINE 4 MG in NS (IVPB) 250 ML IV SCH ×2 (00:39→01:36)
--- NOTE | 2019-11-11 01:35 | NUR ---
DR. LANGE AWARE OF BLOOD PRESSURES FROM TIME OF ARRIVAL AND COLLABORATED WITH TITRATION OF LEVOPHED GTT DURING THIS ER VISIT.
[2019-11-11 01:36] VITALS: BP 104/42
--- NOTE | 2019-11-11 01:36 | NUR ---
3 LEVOPHED GTT KITS SENT WITH [facility] FOR TRANSFER TO [facility].
--- NOTE | 2019-11-11 07:01 | Diagnostic Imaging Report ---
PROCEDURE: CT neck soft tissue without contrast. TECHNIQUE: Multiple contiguous axial images were obtained through the neck without the use of intravenous contrast. Auto Exposure Controls were utilized during the CT exam to meet ALARA standards for radiation dose reduction. INDICATION: Weakness/seizures. Thyroid appears normal. Epiglottis and larynx appear normal. Parapharyngeal fat planes are well preserved. There is no pharyngeal mucosal thickening or prevertebral soft tissue swelling. Submandibular and parotid glands appear normal. Video Library Assistant muscles appear normal. IMPRESSION: Slight edema of the left sternocleidomastoid muscle. There has been a central line placed in the internal jugular vein through the aforementioned muscle. There is a moderate size right pleural effusion present. Agree with preliminary interpretation. Dictated by: Dictated on workstation # [id number]
--- NOTE | 2019-11-11 07:01 | Diagnostic Imaging Report ---
PROCEDURE: CT head without contrast. TECHNIQUE: Multiple contiguous axial images were obtained through the brain without the use of intravenous contrast. Auto Exposure Controls were utilized during the CT exam to meet ALARA standards for radiation dose reduction. INDICATION: Weakness and seizures. The ventricles are normal in size, shape and position. There are no masses or hemorrhages. There are no extra-axial fluid collections. IMPRESSION: Negative CT head. Dictated by: Dictated on workstation # [id number]
== END 2019-11-11 01:36 | disposition short-term general hospital (02) ==
LOC: EDUNIT# 19:07 → ER 19:08
DX: R55 Syncope and collapse (principal); I95.9 Hypotension, unspecified; N18.9 Chronic kidney disease, unspecified; R00.1 Bradycardia, unspecified; R57.0 Cardiogenic shock; G40.909 Epilepsy, unspecified, not intractable, without status epilepticus; Z88.0 Allergy status to penicillin; Z88.1 Allergy status to other antibiotic agents; Z79.01 Long term (current) use of anticoagulants; Z95.0 Presence of cardiac pacemaker; Z82.49 Family history of ischemic heart disease and other diseases of the circulatory system
CPT/HCPCS: 36415; 51702; 70450; 70490; 71045; 80053; 81000; 83605; 83880; 84484; 85025; 85610; 85730; 87040; 87077; 87088; 87804; 93005; 96361; 96365; 96366; 96367; 96375; 99291; 99292